=== PATIENT | female | born 1970 | race Caucasian/White ===

== ENCOUNTER → 2016-04-24 | Outpatient (CLI) | payer OTHER ==
[2015-11-14 11:30] VITALS: BP 103/55
[~2016-04-24] MED LIST: ALBU8.5H6 INH; DILT180C2 PO; HYDR-2666 PO; ONDA4TAB10 SL
--- NOTE | 2016-04-24 16:51 | RAD ---
Three-view right knee study Clinical indications: Chronic right knee pain. History of torn cartilage. Right knee swelling. Findings: No acute fracture or dislocation or osteolytic process is seen. There is moderate joint space narrowing and spurring of the medial tibiofemoral joint compartment. There is mild spurring without joint space narrowing involving the lateral tibiofemoral joint compartment. The patellofemoral joint compartment is unremarkable. No significant swelling of the suprapatellar bursa is seen. IMPRESSION: Moderate primary degenerative osteoarthritis of the medial tibiofemoral joint compartment.
== END | disposition home or self-care (01) ==
LOC: RAD 15:59
PROVIDERS: ATTEND Physician Assistant Medical
DX: M25.561 Pain in right knee (principal); M17.11 Unilateral primary osteoarthritis, right knee
CPT/HCPCS: 73562

== ENCOUNTER → 2016-05-05 | Outpatient (CLI) | payer OTHER ==
[2015-11-14 11:30] VITALS: BP 103/55
--- NOTE | 2016-05-06 09:43 | RAD ---
DATE: 05/05/2016 EXAM: DIGITAL DIAGNOSTIC BILATERAL HISTORY: Right breast pain COMPARISON: 07/31/2015 This study was interpreted with the benefit of Computerized Aided Detection (CAD). FINDINGS: There are scattered fibroglandular densities in both breasts. No new or enlarging breast densities are seen. Minimal benign type calcification is present. No suspicious microcalcifications have developed. Right breast ultrasound, 05/05/2016: A targeted ultrasound exam of the area of pain was performed from the 6:00 to the 12:00 locations. Heterogeneous fibroglandular shadows are present. No cystic or solid breast mass is seen. IMPRESSION: 1. Stable mammograms without evidence of malignancy. 2. The targeted ultrasound exam of the right breast reveal no abnormality. BI-RADS CATEGORY: 2 BENIGN FINDING(S) RECOMMENDED FOLLOW-UP: 12M 12 MONTH FOLLOW-UP PQRS compliance statement: Patient information was entered into a reminder system with a target due date for the next mammogram. Mammography is a sensitive method for finding small breast cancers, but it does not detect them all and is not a substitute for careful clinical examination. A negative mammogram does not negate a clinically suspicious finding and should not result in delay in biopsying a clinically suspicious abnormality. "Our facility is accredited by the [employer] Mammography Program." DICTATED and SIGNED BY: SHANDRA MCCARTY MD DATE: 05/05/16 1006 MTDD
== END | disposition home or self-care (01) ==
LOC: MAMMO 09:30
PROVIDERS: ATTEND Physician Assistant Medical
DX: N64.4 Mastodynia (principal)
CPT/HCPCS: 76641; G0204; 77066

== ENCOUNTER 2016-12-06 13:05 | Emergency (ER) | payer OTHER ==
[~2016-12-06] VITALS: Ht 175.3 cm; Wt 113.4 kg
[~2016-12-06 13:05] MED LIST changes: -HYDR-2666 PO; +HYDR-2758 PO
[2016-12-06 13:28] VITALS: BP 108/56
--- NOTE | 2016-12-06 14:13 | RAD ---
Information: 3 views of the left foot History: History of pain Comparison: none available Findings: The alignment of the tarsal bones, tarsometatarsal joints, metatarsophalangeal joints grossly appears unremarkable. There is no acute fracture or dislocation identified. Impression: No acute osseous findings.
[2016-12-06] MEDS ORDERED: TRAM-48 PO (14:43)
--- NOTE | 2016-12-06 14:43 | PHYS DOC ---
Past Medical History Past Medical History: Asthma Additional Past Medical Histor: adhd Past Surgical History: Cholecystectomy, Hysterectomy Alcohol Use: None Drug Use: None Adult General Chief Complaint Chief Complaint: FOOT INJURY PAIN HPI HPI Patient is a 46 year old female who presents with mild left medial foot/ankle pain that began 2 days ago. Patient denies any trauma. She states the pain is worse on ambulation. Patient states she's had similar pain to the right lower extremity. Patient states most of the pain is on the medial part of the foot. Review of Systems Review of Systems Constitutional: Denies fever or chills [] Musculoskeletal: left medial foot Integument: Denies rash or skin lesions [] Neurologic: Denies headache, focal weakness or sensory changes [] Allergies Allergies Allergies Coded Allergies Type Severity Reaction Last Updated Verified Penicillins Adverse Reaction Intermediate HOT FLASHES 07/04/14 Yes Physical Exam Physical Exam Constitutional: Well developed, well nourished, no acute distress, non-toxic appearance. [] Skin: Warm, dry, no erythema, no rash. [] Back: No tenderness, no CVA tenderness. [] Extremities: Left lower extremity with no obvious deformity. Slight tenderness on palpation of the back of the left foot. No pain or tenderness on the navicular bone of the left foot. No ankle tenderness. Full range of motion to the left foot and ankle. +2 left pedal pulse. Cap refill less than 2 seconds left toes. Sensation intact to the left lower extremity. Neurologic: Alert and oriented X 3, normal motor function, normal sensory function, no focal deficits noted. [] Psychologic: Affect normal, judgement normal, mood normal. [] Current Patient Data Vital Signs Vital Signs Date Time Temp Pulse Resp B/P (MAP) Pulse Ox O2 Delivery O2 Flow Rate FiO2 12/06/16 13:28 97.7 52 18 98 Room Air 97.7 EKG EKG [] Radiology/Procedures Radiology/Procedures [] Course & Med Decision Making Course & Med Decision Making Pertinent Labs and Imaging studies reviewed. (See chart for details) Patient is in the ED with left foot pain no known injury. Left foot x-rays interpreted by radiologist were negative for any acute findings. Patient was provided orthopedic shoe in the ED applied by the agricultural engineering technicians, neurovascular exam is normal, ice elevation encouraged. Follow-up with orthopedic doctor provided in one week. Discharged with [employer]. Perez Disclaimer Chris Disclaimer This electronic medical record was generated, in whole or in part, using a voice recognition dictation system. Departure Departure Impression: Primary Impression: Sprain of left foot Disposition: 01 HOME, SELF-CARE Condition: STABLE Referrals: ROB WHITLOCK MD (PCP) MELVIN GONZALES MD follow up in one week Patient Instructions: Foot Sprain-Brief Additional Instructions: You were seen for left foot sprain. Wear the orthopedic shoe provided as tolerated. Ice and elevate the extremity. Follow-up with the provided orthopedic doctor in one week. Take the prescribed pain medicine as needed, do not drive or operate machinery on the pain medicine. Scripts Tramadol Hcl (ULTRAM) 50 Mg Tablet 1 TAB PO Q6HRS, #30 TAB Prov: UMM CORONA APRN 12/06/16 Problem Qualifiers Primary Impression: Sprain of left foot Encounter type: initial encounter Qualified Codes: S93.602A - Unspecified sprain of left foot, initial encounter UMM CORONA APRN Dec 06, 2016 14:43
== END 2016-12-06 14:51 | disposition home or self-care (01) ==
LOC: ER 13:05
DX: S93.602A Unspecified sprain of left foot, initial encounter (principal); F90.9 Attention-deficit hyperactivity disorder, unspecified type; J45.909 Unspecified asthma, uncomplicated; Z88.0 Allergy status to penicillin; X58.XXXA Exposure to other specified factors, initial encounter; Y93.89 Activity, other specified; Y92.89 Other specified places as the place of occurrence of the external cause; Y99.8 Other external cause status
CPT/HCPCS: 73630; 99284

== ENCOUNTER → 2017-03-06 | Outpatient (CLI) | payer OTHER ==
[~2017-03-06] MED LIST changes: +IOHEXOL 240 MG/ML 50ML VIAL. PO ONE; +IOHEXOL 300 MG/ML 100ML VIAL. IV ONE; +TRAM-48 PO; +diphenhydrAMINE HCL 25 MG CAPSULE PO ONE
--- NOTE | 2017-03-06 16:46 | RAD ---
CT abdomen and pelvis without contrast Indication: Diarrhea. Bilateral lower quadrant pain Technique: CT abdomen and pelvis without IV contrast. Oral contrast was given. Comparison: None Findings: Limited evaluation of solid abdominal organs due to lack of IV contrast. Heart is normal in size. No pericardial or pleural effusion. Clear lung bases. Liver is normal in morphology. Status post cholecystectomy. Spleen is top normal in size. Noncontrast appearance of the pancreas is within normal limits. No adrenal masses. No hydronephrosis or nephrolithiasis. No pathologically enlarged retroperitoneal or pelvic adenopathy. No bowel obstruction. No abnormal bowel wall thickening. Normal appendix. No bilateral lower quadrant inflammatory changes. No angle adenopathy. Uterus is nonvisualized likely surgically absent. No solid adnexal masses. Bladder is decompressed however show no radiopaque stones. No suspicious bony lesion. Impression: Limited study due to lack of IV contrast. No acute findings. No diverticulosis or diverticulitis. No nephrolithiasis. Normal appendix. PQRS Compliance Statement: One or more of the following individualized dose reduction techniques were utilized for this examination: 1. Automated exposure control 2. Adjustment of the mA and/or kV according to patient size 3. Use of iterative reconstruction technique
== END | disposition home or self-care (01) ==
LOC: CT 09:22
PROVIDERS: ATTEND Internal Medicine Gastroenterology
DX: R10.31 Right lower quadrant pain (principal); R10.32 Left lower quadrant pain; R19.7 Diarrhea, unspecified; Z90.49 Acquired absence of other specified parts of digestive tract
CPT/HCPCS: 74176; Q0163; Q9966; Q9967

== ENCOUNTER → 2017-03-24 | Day surgery (SDC) | payer OTHER ==
[~2017-03-24] MED LIST changes: -ALBU8.5H6 INH; -DILT180C2 PO; -HYDR-2758 PO; +HYDROmorphone 2 MG/ML VIAL IV; -IOHEXOL 240 MG/ML 50ML VIAL. PO ONE; -IOHEXOL 300 MG/ML 100ML VIAL. IV ONE; +LIDOCAINE 1% PF 2 ML VIAL. ID; +MORPHINE SULFATE 2 MG/ML DISP.SYRIN. IV; -ONDA4TAB10 SL; +ONDANSETRON PF 4 MG/2 ML VIAL. IV; +PROCHLORPERAZINE 10 MG/2 ML VIAL. IV; +PROPOFOL 20 ML IV; -TRAM-48 PO; -diphenhydrAMINE HCL 25 MG CAPSULE PO ONE; +fentaNYL PF VIAL 100 MCG/2 ML VIAL IV
[2017-03-24] MEDS: IV RINGERS,LACTATED 1000ML 1,000 ML IV (15:30)
== END | disposition home or self-care (01) ==
LOC: ENDOS 15:01
DX: K64.0 First degree hemorrhoids (principal); K57.30 Diverticulosis of large intestine without perforation or abscess without bleeding; I48.91 Unspecified atrial fibrillation; J45.909 Unspecified asthma, uncomplicated; F17.200 Nicotine dependence, unspecified, uncomplicated; Z90.49 Acquired absence of other specified parts of digestive tract; Z90.710 Acquired absence of both cervix and uterus; Z88.6 Allergy status to analgesic agent; Z88.0 Allergy status to penicillin
CPT/HCPCS: 45380; 88305; J2704

== ENCOUNTER 2017-05-15 03:56 | Emergency (ER) | payer OTHER | END 2017-05-15 05:14 | disposition home or self-care (01) | LOC: ER 03:56 | DX: K59.00 Constipation, unspecified (principal); J45.909 Unspecified asthma, uncomplicated; Z90.710 Acquired absence of both cervix and uterus; Z90.49 Acquired absence of other specified parts of digestive tract; Z87.891 Personal history of nicotine dependence; Z88.0 Allergy status to penicillin; Z91.041 Radiographic dye allergy status | CPT/HCPCS: 74022; 99284 ==

== ENCOUNTER → 2017-05-21 | Outpatient (CLI) | payer OTHER | END | disposition home or self-care (01) | LOC: MAMMO 14:23 | DX: Z12.31 Encounter for screening mammogram for malignant neoplasm of breast (principal) | CPT/HCPCS: 77067 ==

== ENCOUNTER → 2017-12-01 | Outpatient (CLI) | payer OTHER ==
[2017-05-15 04:23] VITALS: BP 117/66
[~2017-12-01] MED LIST changes: +ALBU8.5H6 INH; +DILT180C2 PO; +HYDR-2758 PO; -HYDROmorphone 2 MG/ML VIAL IV; -LIDOCAINE 1% PF 2 ML VIAL. ID; -MORPHINE SULFATE 2 MG/ML DISP.SYRIN. IV; +ONDA4TAB10 SL; -ONDANSETRON PF 4 MG/2 ML VIAL. IV; -PROCHLORPERAZINE 10 MG/2 ML VIAL. IV; -PROPOFOL 20 ML IV; +TRAM-48 PO; -fentaNYL PF VIAL 100 MCG/2 ML VIAL IV
--- NOTE | 2017-12-01 16:05 | RAD ---
Thyroid ultrasound 12/01/2017 Indication: Nodule of the neck Comparison study: None available Discussion: Ultrasound evaluation of the thyroid gland was performed. Static images were submitted to PACS. There is diffuse heterogeneity of the thyroid gland. The thyroid gland is mildly enlarged measuring 5.8 x 1.8 x 2.7 cm on the right and 5.3 x 2.3 x 2.0 cm on the left. Thyroid isthmus measures 1.0 cm in thickness. No evidence of hyperemia is identified on color Doppler imaging. No well-defined focal nodules are seen. Thyroid contours mildly lobulated. Impression: Enlargement of the thyroid gland which is diffusely heterogenous in echotexture. No well-defined focal masses or nodules are identified. Findings could reflect the sequela of thyroiditis. Correlate with clinical findings.
== END | disposition home or self-care (01) ==
LOC: US 14:53
PROVIDERS: ATTEND Family Medicine
DX: E04.8 Other specified nontoxic goiter (principal); I10 Essential (primary) hypertension; E78.5 Hyperlipidemia, unspecified; J45.909 Unspecified asthma, uncomplicated; E66.9 Obesity, unspecified; Z87.891 Personal history of nicotine dependence; Z90.721 Acquired absence of ovaries, unilateral; Z90.49 Acquired absence of other specified parts of digestive tract; Z90.710 Acquired absence of both cervix and uterus; Z82.49 Family history of ischemic heart disease and other diseases of the circulatory system
CPT/HCPCS: 76536

== ENCOUNTER → 2018-02-10 | Outpatient (CLI) | payer OTHER ==
[2017-05-15 04:23] VITALS: BP 117/66
--- NOTE | 2018-02-11 10:24 | SLEEP ---
DATE OF STUDY: 02/10/2018 HOME SLEEP STUDY DATE OF STUDY: 02/10/2018. ATTENDING PHYSICIAN: Sona Coffey M.D. The patient is 47 years old who weighs 240 pounds and is 66 inches tall with a BMI of 38.7. The patient's Crookston score was 17. The patient underwent home sleep study performed by [facility]. Total recording time was 489 minutes. During the night study, the patient had 1 central apnea, 33 obstructive apneas, 4 mixed apneas and 52 hypopneas. The patient's apnea-hypopnea index was 11 per hour. Supine sleep was not recorded. Nocturnal oximetry study revealed an average oxygen saturation of 91% with the lowest of 78%; 85 minutes were spent in oxygen saturation less than 90%. Mean heart rate was 55 beats per minute, with a maximum 91 beats per minute. IMPRESSION: 1. Mild sleep apnea-hypopnea syndrome at an apnea-hypopnea index of 11 per hour. 2. Nocturnal hypoxia, secondary to obstructive sleep apnea. RECOMMENDATIONS: 1. The patient has mild sleep apnea, but she is clinically symptomatic, with an Crookston score of 17. I would recommend treating the patient's sleep apnea either with oral appliance or a trial of CPAP titration. 2. Once the patient's sleep apnea is treated, then she should be followed up in 4-6 weeks to assess compliance with treatment and to document clinical improvement. 3. Weight loss is advised. 4. 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 5. Caution regarding driving recommendation. PAULA MEJIA MD DR: RANI/neli JOB#: [id number] / [id number] ANKUR Jensen MD, WHITNEY MD
== END | disposition home or self-care (01) ==
LOC: RT 07:44
PROVIDERS: ATTEND Internal Medicine Pulmonary Disease
DX: G47.33 Obstructive sleep apnea (adult) (pediatric) (principal); G47.34 Idiopathic sleep related nonobstructive alveolar hypoventilation
CPT/HCPCS: G0399

== ENCOUNTER → 2018-06-14 | Outpatient (CLI) | payer OTHER ==
[2017-05-15 04:23] VITALS: BP 117/66
[~2018-06-14] MED LIST changes: -HYDR-2758 PO; +HYDR-2761 PO
--- NOTE | 2018-06-14 09:45 | RAD ---
DATE: 06/14/2018 EXAM: DIGITAL SCREEN BILAT W/CAD HISTORY: Routine screening COMPARISON: 05/21/2017 This study was interpreted with the benefit of Computerized Aided Detection (CAD). Breast Density: SCATTERED The breast parenchyma shows scattered fibroglandular densities. Breast parenchyma level B. FINDINGS: No new or enlarging breast densities are seen. Minimal benign type calcification is present. No suspicious microcalcifications have developed. IMPRESSION: Stable mammograms without evidence of malignancy. BI-RADS CATEGORY: 1 NEGATIVE RECOMMENDED FOLLOW-UP: 12M 12 MONTH FOLLOW-UP PQRS compliance statement: Patient information was entered into a reminder system with a target due date for the next mammogram. Mammography is a sensitive method for finding small breast cancers, but it does not detect them all and is not a substitute for careful clinical examination. A negative mammogram does not negate a clinically suspicious finding and should not result in delay in biopsying a clinically suspicious abnormality. "Our facility is accredited by the [employer] Mammography Program."
== END | disposition home or self-care (01) ==
LOC: MAMMO 08:52
PROVIDERS: ATTEND Family Medicine
DX: Z12.31 Encounter for screening mammogram for malignant neoplasm of breast (principal)
CPT/HCPCS: 77067

== ENCOUNTER → 2018-06-22 | Day surgery (SDC) | payer OTHER ==
[~2018-06-22] MED LIST changes: +IV RINGERS,LACTATED 1000ML 1,000 ML IV SCH; +LIDOCAINE 2% PF 5 ML VIAL. ONE; +PROPOFOL 40 ML IV ONE
[2018-06-22 18:09] VITALS: BP 126/68
--- NOTE | 2018-06-22 23:38 | HP ---
ADMIT DATE: 06/22/2018 REFERRING PHYSICIAN: Sona Coffey MD HISTORY OF PRESENT ILLNESS: This is a 47-year-old female whose past medical history is significant for cholecystectomy, irritable bowel syndrome, persistent epigastric and chest pain is seen for further evaluation. She has had some improvement with Gas-X, but has episodes that lasts 20 or 30 minutes without radiation. There has been no dysphagia or odynophagia. There has been no melena and/or hematochezia. Weight and appetite otherwise have been stable. With continued issues, she requests additional evaluation. PAST MEDICAL HISTORY: Epigastric pain, status post cholecystectomy and asthma. ALLERGIES: PENICILLIN AND CODEINE. MEDICATIONS: Include albuterol. FAMILY AND SOCIAL HISTORY: Significant for myocardial infarction in multiple family members. Social history, she is a former smoker and nondrinker. PAST SURGICAL HISTORY: Status post cholecystectomy, status post hysterectomy. REVIEW OF SYSTEMS: Per records. PHYSICAL EXAMINATION: GENERAL: This is a well-nourished, well-developed female who is alert and cooperative in no acute distress. VITAL SIGNS: Afebrile, pulse is 75, respiratory rate is 18 and blood pressure 130/75. HEENT: Reveals normocephalic and atraumatic head. Pupils and extraocular muscles are not tested. Sclerae anicteric. NECK: Supple. LUNGS: Clear. CARDIOVASCULAR: Reveals an S1, S2 without S3, S4 or appreciable murmur. ABDOMEN: Reveals soft abdomen, normal bowel sounds, without appreciable hepatosplenomegaly. Epigastric tenderness to deep palpation. EXTREMITIES: Reveals no cyanosis, clubbing or edema. IMPRESSION: Abdominal pain, status post cholecystectomy, etiology is to be determined. Prior colonoscopy and CT scan have been unrevealing. Differential includes gastroparesis, celiac disease, peptic ulcer disease and malignancy. Therefore, recommend upper endoscopy. If this is unrevealing, then further evaluation may include gastric emptying study and possible ultrasound of the liver as well as a nerve block for the possible neuroma. ROMAN HERNANDEZ MD DR: ALYSSA/neli JOB#: [id number] / [id number]
== END | disposition home or self-care (01) ==
LOC: ENDOS 16:03
PROVIDERS: ATTEND Internal Medicine Gastroenterology
DX: K29.50 Unspecified chronic gastritis without bleeding (principal); J45.909 Unspecified asthma, uncomplicated; Z90.49 Acquired absence of other specified parts of digestive tract; Z88.0 Allergy status to penicillin; Z88.6 Allergy status to analgesic agent; Z90.710 Acquired absence of both cervix and uterus; Z82.49 Family history of ischemic heart disease and other diseases of the circulatory system; Z88.5 Allergy status to narcotic agent; Z79.899 Other long term (current) drug therapy; Z87.891 Personal history of nicotine dependence; Z88.8 Allergy status to other drugs, medicaments and biological substances
CPT/HCPCS: 43235; J2001; J2704

== ENCOUNTER → 2018-07-02 | Outpatient (CLI) | payer MEDICAID, OTHER ==
[2018-06-22 18:09] VITALS: BP 126/68
[~2018-07-02] MED LIST changes: -IV RINGERS,LACTATED 1000ML 1,000 ML IV SCH; -LIDOCAINE 2% PF 5 ML VIAL. ONE; -PROPOFOL 40 ML IV ONE
--- NOTE | 2018-07-02 13:47 | RAD ---
EXAM: Nuclear gastric emptying scan. HISTORY: Pain. COMPARISON: None. TECHNIQUE: Serial static images were obtained over the stomach following oral administration of 2 mCi of 99m-Tc sulfur colloid. FINDINGS: The stomach empties into the small bowel without evidence of reflux in the area of the esophagus. The estimated time for half emptying of gastric contents, i.e. 'gastric emptying time' is 63 minutes (normal is 66 +/- 22 minutes). There is 47% retained tracer activity within the stomach at one hour, 19% retained tracer activity within the stomach at 2 hours, 3% retained tracer activity within the stomach at 3 hours on 0% retained tracer activity within the stomach at 4 hours. IMPRESSION: Normal gastric emptying scan. Electronically signed by: Melina Person MD (07/02/2018 1:44 PM) [facility]
== END | disposition home or self-care (01) ==
LOC: NM 08:46
PROVIDERS: ATTEND Internal Medicine Gastroenterology
DX: R10.13 Epigastric pain (principal)
CPT/HCPCS: 78264; A9541

== ENCOUNTER → 2018-07-09 | Outpatient (CLI) | payer MEDICAID, OTHER ==
[2018-06-22 18:09] VITALS: BP 126/68
--- NOTE | 2018-07-09 09:39 | RAD ---
ABDOMEN COMPLETE History: Epigastric pain Comparison: None. Findings: Multiple sonographic images of the abdomen are submitted. There is segmental visualization of the inferior vena cava. Abdominal aortic caliber is within normal limits up to 2 cm. There has been cholecystectomy. There is no abnormality of the visualized pancreas. No focal hepatic lesion is demonstrated. Right lobe of the liver measured 16.9 cm longitudinal. Common bile duct is within normal limits at 0.3 cm. Right kidney measured 11.3 x 4.4 x 5.8 cm. Left kidney measured 11.8 x 5 x 4.7 cm. There is no hydronephrosis of either kidney. Spleen measured 5.9 x 14.7 x 5.5 cm. Pancreas is not well-visualized due to bowel gas. Impression: 1. There is mild splenomegaly. No other significant abnormality is demonstrated. There has been cholecystectomy. Pancreas is not well-visualized. Electronically signed by: Deric Michelle MD (07/09/2018 9:36 AM) [id number]
== END | disposition home or self-care (01) ==
LOC: US 08:46
PROVIDERS: ATTEND Internal Medicine Gastroenterology
DX: R16.1 Splenomegaly, not elsewhere classified (principal); Z90.49 Acquired absence of other specified parts of digestive tract
CPT/HCPCS: 76700

== ENCOUNTER → 2019-06-20 | Outpatient (CLI) | payer OTHER ==
[2018-06-22 18:09] VITALS: BP 126/68
--- NOTE | 2019-06-22 11:34 | RAD ---
History: Routine screening. Technique: Bilateral digital mammographic routine views were obtained with CAD - computer aided detection. Comparison: 06/14/2018. Findings: Breast Tissue Density B :The breast tissue is composed of mixed fatty and fibroglandular tissue. There are no suspicious masses, microcalcifications or areas of architectural distortion. Impression: Negative mammogram. BI-RADS Category 1: Negative. Normal interval followup. A mammogram does not have 100% sensitivity and therefore a negative imaging study should not delay further work up of a suspicious abnormality. The patient will receive a letter with the results in the mail. Patient information is entered into the reminder system with a target due date for the next screening mammogram. The patient will receive a reminder. "Our facility is accredited by the [employer] Mammography Program." BI-RADS 1 -- negative findings (within normal)
== END | disposition home or self-care (01) ==
LOC: MAMMO 09:46
PROVIDERS: ATTEND Family Medicine
DX: Z12.31 Encounter for screening mammogram for malignant neoplasm of breast (principal)
CPT/HCPCS: 77067

== ENCOUNTER → 2020-06-14 | Outpatient (CLI) | payer OTHER ==
[2018-06-22 18:09] VITALS: BP 126/68
--- NOTE | 2020-06-14 11:14 | KCIC ---
EXAM: Right shoulder, 3 views. HISTORY: Pain. COMPARISON: None. FINDINGS: 3 views of the right shoulder obtained. There is no fracture, dislocation or subacute fixat ion. There is a small inferior marginal humeral head spur. IMPRESSION: Mild glenohumeral osteoarthritis. Electronically signed by: Melina Person MD (06/14/2020 11:11 AM) [id number]
== END ==
LOC: KCIC 10:55
PROVIDERS: ATTEND Family Medicine
DX: M19.011 Primary osteoarthritis, right shoulder (principal); M77.8 Other enthesopathies, not elsewhere classified
CPT/HCPCS: 73030

== ENCOUNTER → 2020-10-09 | Outpatient (CLI) | payer OTHER ==
[2018-06-22 18:09] VITALS: BP 126/68
--- NOTE | 2020-10-09 16:08 | RAD ---
MG 2D BILAT SCREENING 10/09/2020 9:10 AM INDICATION: Asymptomatic screening mammogram. COMPARISON: 06/20/2019, 06/14/2018 TECHNIQUE: 2D CC and MLO projections were obtained of each breast. FINDINGS: Breast density: Category B: There are scattered areas of fibroglandular density. Right breast: There are no suspicious microcalcifications, masses or areas of architectural distortio n. Left breast: There are no suspicious microcalcifications, masses or areas of architectural distortion . Bilateral mammogram is compared to prior examinations appears unchanged. IMPRESSION: Negative bilateral mammogram. BI-RADS category: 1; Negative Recommendations: Recommend annual screening mammography in one year. Electronically signed by: Gladis Wright MD (10/09/2020 4:05 PM) [id number]
== END ==
LOC: MAMMO 08:39
PROVIDERS: ATTEND Family Medicine
DX: Z12.31 Encounter for screening mammogram for malignant neoplasm of breast (principal)
CPT/HCPCS: 77067

== ENCOUNTER → 2020-11-28 | Outpatient (CLI) | payer OTHER ==
[2018-06-22 18:09] VITALS: BP 126/68
--- NOTE | 2020-11-28 22:05 | CARD ---
MR#: [id number] Date of Study: 11/28/2020 Ordering Physician: ADAM EMERY, Referring Physician: ADAM EMERY, Tech: Sada Villalba, [facility] APPROVED REPORT EXAM: Two-dimensional and M-mode echocardiogram with Doppler and color Doppler. Other Information Quality : AverageHR: 54bpm Technically limited study due to body habitus. INDICATION Murmur 2D DIMENSIONS RVDd3.7 (2.9-3.5cm)Left Atrium(2D)3.8 (1.6-4.0cm) IVSd1.2 (0.7-1.1cm)Aortic Root(2D)3.6 (2.0-3.7cm) LVDd4.9 (3.9-5.9cm)LVOT Diameter2.1 (1.8-2.4cm) PWd1.0 (0.7-1.1cm)LVDs2.8 (2.5-4.0cm) FS (%) 42.6 %SV82.2 ml LVEF(%)70.5 (>50%) Aortic Valve AoV Peak Dariel.99.9cm/sAoV VTI24.9cm AO Peak GR.4.0mmHgLVOT Peak Dariel.80.9cm/s LVOT VTI 23.02cmAO Mean GR.2mmHg LIV (VMAX)2.03ro6ZCY (VTI)3.32cm2 Mitral Valve MV E Bnbjptie65.4cm/sMV DECEL [id number] MV A Frrrkiuz20.5cm/sMV PKK81za E/A Ratio1.4MVA (PHT)2.57cm2 Pulmonary Valve PV Peak Bwhrdjvb615.4cm/sPV Peak Grad.4mmHg Tricuspid Valve TR P. Sibxtacg735ma/sRAP NZYDOMMH0bkVl TR Peak Gr.48iyUkWOKJ71zxQk Pulmonary Vein S1 Czbwjufd06.1cm/sD2 Vcruoyrm03.8cm/s PVa [id number] LEFT VENTRICLE The left ventricle is normal size. There is normal left ventricular wall thickness. The left ventricu lar systolic function is normal and the ejection fraction is within normal range. The Ejection Fracti on is 55-60%. There is normal LV segmental wall motion. RIGHT VENTRICLE The right ventricle is normal size. There is normal right ventricular wall thickness. The right ventr icular systolic function is normal. ATRIA The left atrium size is normal. The right atrium size is normal. The interatrial septum is intact wit h no evidence for an atrial septal defect or patent foramen ovale as noted on 2-D or Doppler imaging. AORTIC VALVE The aortic valve is normal in structure and function. Technically limited images. Doppler and Color F low revealed no significant aortic regurgitation. There is no significant aortic valvular stenosis. C alculated aortic valve area is 3.02 cm2 with maximum pressure gradient of 5 mmHg and mean pressure gr adient of 3 mmHg. MITRAL VALVE The mitral valve is normal in structure and function. There is no evidence of mitral valve prolapse. There is no mitral valve stenosis. Doppler and Color Flow revealed no mitral valve regurgitation note d. TRICUSPID VALVE The tricuspid valve is normal in structure and function. Doppler and Color Flow revealed trace tricus pid regurgitation with an estimated PAP of 32 mmHg. There is no tricuspid valve stenosis. PULMONIC VALVE The pulmonic valve is not well visualized. Doppler and Color Flow revealed trace pulmonic valvular re gurgitation. There is no pulmonic valvular stenosis. GREAT VESSELS The aortic root is normal in size. The ascending aorta is normal in size. The IVC is normal in size a nd collapses >50% with inspiration. PERICARDIAL EFFUSION There is no evidence of significant pericardial effusion. Critical Notification Critical Value: No <Conclusion> The left ventricular systolic function is normal and the ejection fraction is within normal range. Th e Ejection Fraction is 55-60%. There is normal LV segmental wall motion. Technically difficult study Signed by : James Carty, Electronically Approved : 11/28/2020 22:04:58
== END ==
LOC: ECHO 09:42
PROVIDERS: ATTEND Internal Medicine Cardiovascular Disease
DX: R01.1 Cardiac murmur, unspecified (principal)
CPT/HCPCS: 93306